=== PATIENT | male | born 1985 | race Caucasian/White ===

== ENCOUNTER 2021-01-21 06:13 | Inpatient (IN) | payer BC ==
[2021-01-16 16:00] VITALS: BMI 39.1
[2021-01-21] MEDS ORDERED: SUCCINYLCHOLINE CHLORIDE 200 MG/10 ML SYRINGE ONE (07:11)
[2021-01-21] MEDS ORDERED: PROPOFOL 20 ML ONE ×2 (07:11)
[2021-01-21] MEDS ORDERED: ROCURONIUM BROMIDE 50 MG/5 ML SYRINGE ONE (07:11)
[2021-01-21] MEDS ORDERED: MIDAZOLAM HCL 2 MG/2 ML SINGLE DOSE VIAL ONE (07:14)
[2021-01-21] MEDS ORDERED: KETAMINE HCL 200 MG/20 ML VIAL ONE (07:14)
[2021-01-21] MEDS ORDERED: DEXMEDETOMIDINE HCL 200 MCG/2 ML IVPB ONE (07:16)
[2021-01-21] MEDS ORDERED: ACETAMINOPHEN INJECTION 200 ML IVPB ONE (07:17)
[2021-01-21] MEDS ORDERED: BUPIVACAINE HCL/PF 2.5 MG/ML - 30 ML VIAL IJ ONE ×3 (07:19→09:28)
[2021-01-21] MEDS ORDERED: ceFAZolin SODIUM 1 GM VIAL ONE (07:22)
[2021-01-21] MEDS ORDERED: NEOSTIGMINE METHYLSULFATE 0.5 MG/1 ML - 10 ML MDV ONE (08:29)
[2021-01-21] MEDS ORDERED: GLYCOPYRROLATE 0.2 MG/1 ML VIAL ONE (08:30)
[2021-01-21] MEDS ORDERED: ONDANSETRON 4 MG/2 ML VIAL ONE (09:17)
[2021-01-21] MEDS: METOCLOPRAMIDE HCL INJECTION 10 MG/2 ML VIAL IVPUSH SCH ×4 (09:45→20:59)
[2021-01-21] MEDS ORDERED: FAMOTIDINE 20 MG PREMIXED IVPB IVPB ONE (09:45)
[2021-01-21] MEDS ORDERED: PROMETHAZINE HCL 25 MG/1 ML VIAL IVPUSH PRN (10:01)
[2021-01-21 10:31] LABS: HEMATOCRIT 42.7 % (35.4-49); HEMOGLOBIN 13.7 GM/dl (11.7-16.9); MCH 23.4 pg (25.7-33.7); MEAN CELL VOLUME 73.1 fl (80-96); MEAN PLT VOLUME 9.1 fl (7.5-11.1); PLATELET COUNT 240 10^3/uL (134-434); RBC 5.84 M/mm3 (4.00-5.60); RDW 14.4 % (11.9-15.9); WHITE BLOOD COUNT 11.6 K/mm3 (4.0-10.8)
[2021-01-21 10:38] LABS: ALBUMIN 3.8 g/dl (3.4-5.0); BILIRUBIN,TOTAL 1.1 mg/dl (0.2-1); CALCIUM 8.1 mg/dl (8.5-10); CREATININE 0.8 mg/dl (0.55-1.3); TOT PROT 6.7 g/dl (6.4-8.2)
[2021-01-21] MEDS: ACETAMINOPHEN 1000 MG/100 ML VIAL (NON FORMULARY) IVPB SCH ×3 (12:07→20:59)
[2021-01-21] MEDS: SODIUM CHLORIDE 1,000 ML IV SCH (12:07)
[2021-01-21] MEDS: ONDANSETRON 4 MG/2 ML VIAL IVPUSH SCH ×4 (12:10→20:59)
[2021-01-21] MEDS: FAMOTIDINE 20 MG/50 ML IVPB 20 MG/50 ML MG IVPB SCH ×2 (12:10→20:59)
[2021-01-21] MEDS: INSULIN SLIDING SCALE (NOVOLOG) 1 VIAL SQ SCH ×2 (12:11→17:30)
[2021-01-21] MEDS ORDERED: METOPROLOL TARTRATE 5 MG/5 ML VIAL IVPUSH ONE (14:42)
[2021-01-21] MEDS: HYDROmorphone HCL/PF 1 MG/ML VIAL IVPB PRN ×2 (14:46→23:47)
[2021-01-21] MEDS: ENOXAPARIN NA (PORCINE) 40 MG/0.4 ML DISP.SYRIN SQ SCH (20:59)
[2021-01-22] MEDS: ONDANSETRON 4 MG/2 ML VIAL IVPUSH SCH ×4 (00:56→14:39)
[2021-01-22] MEDS: ACETAMINOPHEN 1000 MG/100 ML VIAL (NON FORMULARY) IVPB SCH (03:25)
[2021-01-22] MEDS: METOCLOPRAMIDE HCL INJECTION 10 MG/2 ML VIAL IVPUSH SCH ×3 (03:25→15:05)
[2021-01-22] MEDS: INSULIN SLIDING SCALE (NOVOLOG) 1 VIAL SQ SCH ×2 (06:19→11:48)
[2021-01-22 08:22] LABS: ALBUMIN 3.5 g/dl (3.4-5.0); BILIRUBIN,TOTAL 2.1 mg/dl (0.2-1); CALCIUM 7.9 mg/dl (8.5-10); CREATININE 0.8 mg/dl (0.55-1.3); TOT PROT 6.2 g/dl (6.4-8.2)
[2021-01-22 08:28] LABS: HEMATOCRIT 39.3 % (35.4-49); HEMOGLOBIN 12.7 GM/dl (11.7-16.9); MCHC 32.3 g/dl (32.0-35.9); MEAN CELL VOLUME 71.3 fl (80-96); MEAN PLT VOLUME 9.3 fl (7.5-11.1); PLATELET COUNT 220 10^3/uL (134-434); RBC 5.51 M/mm3 (4.00-5.60); RDW 13.9 % (11.9-15.9); WHITE BLOOD COUNT 10.9 K/mm3 (4.0-10.8)
[2021-01-22] MEDS: SODIUM CHLORIDE 1,000 ML IV SCH (09:36)
[2021-01-22] MEDS: KCL 10 MEQ IVPB 10 MEQ/100 ML INFUS.BAG IVPB SCH ×2 (09:36→10:38)
[2021-01-22] MEDS: FAMOTIDINE 20 MG/50 ML IVPB 20 MG/50 ML MG IVPB SCH (09:36)
[2021-01-22] MEDS: ENOXAPARIN NA (PORCINE) 40 MG/0.4 ML DISP.SYRIN SQ SCH (09:37)
[2021-01-22] MEDS: HYDROmorphone HCL/PF 1 MG/ML VIAL IVPB PRN (11:22)
[2021-01-22 14:06] VITALS: BP 150/69; PULSE 64; TEMP 98.7
== END 2021-01-22 16:24 | disposition home or self-care (01) | DRG 621 ==
LOC: FM/S 06:13
PROVIDERS: ADMIT Surgery; ATTEND Surgery
PROC: 0FB24ZX Excision of Left Lobe Liver, Percutaneous Endoscopic Approach, Diagnostic (ICD-10-PCS; 2021-01-21)
PROC: 0DJ04ZZ Inspection of Upper Intestinal Tract, Percutaneous Endoscopic Approach (ICD-10-PCS; 2021-01-21)
PROC: 0DB64Z3 Excision of Stomach, Percutaneous Endoscopic Approach, Vertical (ICD-10-PCS; principal; 2021-01-21 08:00)
PROC: 0DNW4ZZ Release Peritoneum, Percutaneous Endoscopic Approach (ICD-10-PCS; 2021-01-21 08:00)
DX: E66.01 Morbid (severe) obesity due to excess calories (principal); Z68.39 Body mass index [BMI] 39.0-39.9, adult; I10 Essential (primary) hypertension; E78.5 Hyperlipidemia, unspecified; E11.9 Type 2 diabetes mellitus without complications; K66.0 Peritoneal adhesions (postprocedural) (postinfection); R16.0 Hepatomegaly, not elsewhere classified
CPT/HCPCS: 36415; 74240-TC-FY; 80053; 82962; 84484; 85027; 93005; 93306-TC; 94760; J0131; Q9967